=== PATIENT | female | born 1965 | race Caucasian/White ===

== ENCOUNTER 2018-03-23 09:07 | Observation (INO) | payer MEDICARE, MEDICAID ==
[2018-03-23] MEDS ORDERED: Sodium Chloride 0.9% 2.5 ML Syringe FLUSH PRN (09:16)
[2018-03-23] MEDS ORDERED: Sodium Chloride 0.9% 10 ML Syringe FLUSH PRN (09:16)
[2018-03-23] MEDS ORDERED: Aspirin 81 MG Tab.Chew PO ONE (09:26)
[2018-03-23] MEDS ORDERED: Nitroglycerin 0.4 MG Tab.SL SL PRN (09:26)
--- NOTE | 2018-03-23 09:30 | EDM.PDOC ---
ED HPI GENERAL MEDICAL PROBLEM - General Chief Complaint: Chest Pain Stated Complaint: CHEST PAIN Time Seen by Provider: 03/23/18 09:15 Source of Information: Reports: Patient History Limitations: Reports: No Limitations - History of Present Illness INITIAL COMMENTS - FREE TEXT/NARRATIVE: History of present illness: []She started having left-sided chest pain along her lower bra line this morning while she was getting dress approximately 45 minutes ago. Patient states her pain was 4/10 and is now a 1/10. She denies any other symptoms such as dizziness, sweating, shortness of breath or syncope. Patient is scheduled for a angiogram in another hospital in 4 days. Review of systems: As per history of present illness and below otherwise all systems reviewed and negative. Past medical history: As per history of present illness and as reviewed below otherwise noncontributory. Surgical history: As per history of present illness and as reviewed below otherwise noncontributory. Social history: No reported history of drug or alcohol abuse. Family history: As per history of present illness and as reviewed below otherwise noncontributory. Physical exam: General: Well developed, well nourished in NAD HEENT: Atraumatic, normocephalic, pupils reactive, negative for conjunctival pallor or scleral icterus, mucous membranes moist, throat clear, neck supple, nontender, trachea midline. Lungs: Clear to auscultation, breath sounds equal bilaterally, chest nontender. Heart: S1S2, regular, negative for clicks, rubs, or JVD. Abdomen: Soft, nondistended, nontender. Negative for masses or hepatosplenomegaly. Negative for costovertebral tenderness. Pelvis: Stable nontender. Genitourinary: Deferred. Rectal: Deferred. Extremities: Atraumatic, negative for cords or calf pain. Neurovascular unremarkable. Neuro: Awake, alert, oriented. Cranial nerves II through XII unremarkable. Cerebellum unremarkable. Motor and sensory unremarkable throughout. Exam nonfocal. Diagnostics: []CBC normal chemistry normal troponin negative EKG shows no ischemia x-rays negative Therapeutics: []Aspirin nitroglycerin given pain alleviated Impression: []Acute coronary syndrome Plan: []Admit for rule out GA Definitive disposition and diagnosis as appropriate pending reevaluation and review of above. Chest Pain Score (Numeric/FACES): 5 - Related Data Allergies Allergy/AdvReac Type Severity Reaction Status Date / Time ciprofloxacin [From Cipro] Allergy Hives Verified 03/23/18 09:41 meperidine [From Demerol] Allergy Hives Verified 03/23/18 09:41 Home Meds: Home Meds Betamethasone/Clotrimazole [Lotrisone] 1 applic TOP BID 03/23/18 [History] Calcium Citrate/Vitamin D3 [Citracal + D Maximum Caplet] 1 tab PO BID 03/23/18 [ History] Citalopram [Citalopram HBr] 20 mg PO DAILY 03/23/18 [History] Cyclobenzaprine [Flexeril] 5 - 10 mg PO TID 03/23/18 [History] Estrogens, Conjugated [Premarin Vaginal Crm] 1 applic VAG ASDIRECTED 03/23/18 [ History] Eszopiclone [Lunesta] 3 mg PO BEDTIME PRN 03/23/18 [History] Omeprazole Magnesium [Prilosec Otc] 20 mg PO DAILY 03/23/18 [History] Polyethylene Glycol 3350 [MiraLAX] 17 gm PO TID PRN 03/23/18 [History] Pramipexole [Mirapex] 0.25 mg PO BEDTIME 03/23/18 [History] SUMAtriptan Succinate [Imitrex] 100 mg PO ASDIRECTED PRN 03/23/18 [History] Temazepam [Restoril] 15 mg PO BEDTIME PRN 03/23/18 [History] Topiramate [Topamax] 50 mg PO DAILY 03/23/18 [History] buPROPion [Wellbutrin] 100 mg PO BID@06,12 03/23/18 [History] traMADol HCl [Ultram] 50 mg PO BID 03/23/18 [History] ED ROS GENERAL - Review of Systems Review Of Systems: See Below (See history of present illness) ED EXAM, GENERAL - Physical Exam Exam: See Below (See history of present illness) Course - Vital Signs Last Recorded V/S: Last Vital Signs Temp 97.3 F 03/23/18 11:39 Pulse 58 L 03/23/18 11:39 Resp 15 03/23/18 11:39 BP 130/74 03/23/18 11:39 Pulse Ox 98 03/23/18 11:44 - Orders/Labs/Meds Orders: Active Orders 24 hr Category Date Time Status Patient Status [ADT] Stat ADT 03/23/18 10:54 Active EKG Documentation Completion [RC] STAT Care 03/23/18 09:16 Active Nitroglycerin [Nitrostat] Med 03/23/18 09:26 Active 0.4 mg SL Q5M PRN Sodium Chloride 0.9% [Normal Saline] 500 ml Med 03/23/18 11:15 Active IV .BOLUS Sodium Chloride 0.9% [Saline Flush] Med 03/23/18 09:16 Active 10 ml FLUSH ASDIRECTED PRN Sodium Chloride 0.9% [Saline Flush] Med 03/23/18 09:16 Active 2.5 ml FLUSH ASDIRECTED PRN Saline Lock Insert [OM.PC] Stat Oth 03/23/18 09:16 Ordered Medication Orders Acetaminophen (Tylenol) 650 mg PO Q4H PRN PRN Reason: Pain (mild 1-3) Sodium Chloride (Normal Saline) 500 mls @ 999 mls/hr IV .BOLUS TRESA Last Admin: 03/23/18 11:08 Dose: 999 mls/hr Nitroglycerin (Nitrostat) 0.4 mg SL Q5M PRN PRN Reason: Chest Pain Last Admin: 03/23/18 10:56 Dose: 0.4 mg Ondansetron HCl (Zofran) 4 mg IVPUSH Q4H PRN PRN Reason: Nausea Sodium Chloride (Saline Flush) 10 ml FLUSH ASDIRECTED PRN PRN Reason: Keep Vein Open Sodium Chloride (Saline Flush) 2.5 ml FLUSH ASDIRECTED PRN PRN Reason: Keep Vein Open Labs: Laboratory Tests 03/23/18 03/23/18 Range/Units 09:15 09:15 WBC 4.14 (4.0-11.0) K/uL RBC 4.19 L (4.30-5.90) M/uL Hgb 13.9 (12.0-16.0) g/dL Hct 40.9 (36.0-46.0) % MCV 97.6 (80.0-98.0) fL MCH 33.2 H (27.0-32.0) pg MCHC 34.0 (31.0-37.0) g/dL RDW Std Deviation 46.8 (28.0-62.0) fl RDW Coeff of Otilio 13 (11.0-15.0) % Plt Count 186 (150-400) K/uL MPV 10.90 (7.40-12.00) fL Neut % (Auto) 46.4 L (48.0-80.0) % Lymph % (Auto) 41.5 H (16.0-40.0) % [place] % (Auto) 9.2 (0.0-15.0) % Eos % (Auto) 2.4 (0.0-7.0) % Baso % (Auto) 0.5 (0.0-1.5) % Neut # (Auto) 1.9 (1.4-5.7) K/uL Lymph # (Auto) 1.7 (0.6-2.4) K/uL [place] # (Auto) 0.4 (0.0-0.8) K/uL Eos # (Auto) 0.1 (0.0-0.7) K/uL Baso # (Auto) 0.0 (0.0-0.1) K/uL Nucleated RBC % 0.0 /100WBC Nucleated RBCs # 0 K/uL Sodium 140 (136-145) mmol/L Potassium 3.9 (3.5-5.1) mmol/L Chloride 106 (98-107) mmol/L Carbon Dioxide 27.2 (21.0-32.0) mmol/L BUN 27 H (7.0-18.0) mg/dL Creatinine 0.9 (0.6-1.0) mg/dL Est Cr Clr Drug Dosing 62.42 mL/min Estimated GFR (MDRD) > 60.0 ml/min Glucose 98 (74-106) mg/dL Calcium 8.6 (8.5-10.1) mg/dL Total Bilirubin 0.3 (0.2-1.0) mg/dL AST 30 (15-37) IU/L ALT 33 (14-63) IU/L Alkaline Phosphatase 81 (46-116) U/L Troponin I < 0.050 (0.000-0.056) ng/mL Total Protein 6.8 (6.4-8.2) g/dL Albumin 3.6 (3.4-5.0) g/dL Globulin 3.2 (2.0-3.5) g/dL Albumin/Globulin Ratio 1.1 L (1.3-2.8) Meds: Medications Generic Name Dose Route Start Last Admin Trade Name Donal PRN Reason Stop Dose Admin Acetaminophen 650 mg 03/23/18 11:44 Tylenol PO Q4H PRN Pain (mild 1-3) Sodium Chloride 500 mls @ 999 mls/hr 03/23/18 11:15 03/23/18 11:08 Normal Saline IV 999 mls/hr .BOLUS TRESA Administration Nitroglycerin 0.4 mg 03/23/18 09:26 03/23/18 10:56 Nitrostat SL 0.4 mg Q5M PRN Administration Chest Pain Ondansetron HCl 4 mg 03/23/18 11:44 Zofran IVPUSH Q4H PRN Nausea Sodium Chloride 10 ml 03/23/18 09:16 Saline Flush FLUSH ASDIRECTED PRN Keep Vein Open Sodium Chloride 2.5 ml 03/23/18 09:16 Saline Flush FLUSH ASDIRECTED PRN Keep Vein Open Discontinued Medications Generic Name Dose Route Start Last Admin Trade Name Donal PRN Reason Stop Dose Admin Aspirin 324 mg 03/23/18 09:26 03/23/18 10:55 Aspirin PO 03/23/18 09:27 324 mg ONETIME ONE Administration Departure - Departure Time of Disposition: 12:13 Disposition: Refer to Observation Condition: Good Clinical Impression: Acute coronary syndrome - My Orders Last 24 Hours: My Active Orders 03/23/18 09:16 EKG Documentation Completion [RC] STAT Sodium Chloride 0.9% [Saline Flush] 10 ml FLUSH ASDIRECTED PRN Sodium Chloride 0.9% [Saline Flush] 2.5 ml FLUSH ASDIRECTED PRN Saline Lock Insert [OM.PC] Stat 03/23/18 09:26 Nitroglycerin [Nitrostat] 0.4 mg SL Q5M PRN 03/23/18 10:54 Patient Status [ADT] Stat 03/23/18 11:15 Sodium Chloride 0.9% [Normal Saline] 500 ml IV .BOLUS - Assessment/Plan Last 24 Hours: My Active Orders 03/23/18 09:16 EKG Documentation Completion [RC] STAT Sodium Chloride 0.9% [Saline Flush] 10 ml FLUSH ASDIRECTED PRN Sodium Chloride 0.9% [Saline Flush] 2.5 ml FLUSH ASDIRECTED PRN Saline Lock Insert [OM.PC] Stat 03/23/18 09:26 Nitroglycerin [Nitrostat] 0.4 mg SL Q5M PRN 03/23/18 10:54 Patient Status [ADT] Stat 03/23/18 11:15 Sodium Chloride 0.9% [Normal Saline] 500 ml IV .BOLUS
[2018-03-23 10:18] LABS: CHLORIDE,CL 106 mmol/L (98-107); SODIUM,NA 140 mmol/L (136-145)
--- NOTE | 2018-03-23 10:49 | CR ---
EXAMINATION: Portable chest radiograph. HISTORY: Shortness of breath. FINDINGS: The trachea is midline. The cardiomediastinal silhouette is within normal limits. No pulmonary infilt rates, effusions or pneumothorax. Osseous structures appear unremarkable. Screw and plate hardware fixate the left clavicle. IMPRESSION: No acute cardiopulmonary process.
[2018-03-23] MEDS ORDERED: Sodium Chloride 0.9% 500 ML IV SCH (11:15)
[2018-03-23] MEDS ORDERED: Ondansetron 4 MG/2 ML SDV IVPUSH PRN (11:44)
[2018-03-23] MEDS ORDERED: Acetaminophen 325 MG Tab PO PRN (11:44)
--- NOTE | 2018-03-23 11:49 | PCM.HP ---
H&P History of Present Illness - General Date of Service: 03/23/18 Admit Problem/Dx: Admission Diagnosis/Problem Admission Diagnosis/Problem Chest pain Source of Information: Patient History Limitations: Reports: No Limitations - History of Present Illness Initial Comments - Free Text/Narative: This 52 year old female with pmh of migraine, depression, hx gastric bypass and currently being worked up by Cardiology in [place], [place] for CAD and chest pain. She reports she started having some chest pain yesterday at [place], it was midsternal, sharp pin like with some pressure, that lasted approximately 5 minutes. Then today she was getting dressed and the pain returned, with diaphoresis and some radiation to her R neck. She felt lightheaded and slightly dizzy. Her and her significant other checked her BP which was 116/90s, HR was lower, but they couldn't recall what it was. This pain last about 15 minutes and was nearly gone by the time she got to our ED. She was given 4 baby ASAs and 1 SL nitro in the ED. Pain was about 1/10 to almost nothing, just a slight pressure. She reports she sometimes has nothing and other times has a very small amount of pressure like feeling. She is feeling good now, pain free. No fevers, chills at home. No dypsnea or cough. No abdominal pain or heart burn. She no longer smokes, she admits to smoking marijuana approximately 4 days ago. No other recreational drug use and no alcohol use. In the ED labwork within normal limits. Troponin negative. EKG, SR with no acute ischemic changes. CXR negative. She will be admitted for chest pain rule out ACS. She reports she was here in [place] to meet with a ops analyst for her upcoming marriage. She has angiogram scheduled 03/27/2017 in [place] and was planning on returning to [place] today. Her angiogram is with Dr Sosa at [facility]. ELEAZAR Yi is her PCP in [place] as well, who she contacted prior to coming to the ED and who urged her to get to an ED. Chest Pain Score (Numeric/FACES): 5 - Related Data Allergies/Adverse Reactions: Allergies Allergy/AdvReac Type Severity Reaction Status Date / Time ciprofloxacin [From Cipro] Allergy Hives Verified 03/23/18 09:41 meperidine [From Demerol] Allergy Hives Verified 03/23/18 09:41 Home Medications: Home Meds Betamethasone/Clotrimazole [Lotrisone] 1 applic TOP BID 03/23/18 [History] Calcium Citrate/Vitamin D3 [Citracal + D Maximum Caplet] 1 tab PO BID 03/23/18 [ History] Citalopram [Citalopram HBr] 20 mg PO DAILY 03/23/18 [History] Cyclobenzaprine [Flexeril] 5 - 10 mg PO TID 03/23/18 [History] Estrogens, Conjugated [Premarin Vaginal Crm] 1 applic VAG ASDIRECTED 03/23/18 [ History] Eszopiclone [Lunesta] 3 mg PO BEDTIME PRN 03/23/18 [History] Omeprazole Magnesium [Prilosec Otc] 20 mg PO DAILY 03/23/18 [History] Polyethylene Glycol 3350 [MiraLAX] 17 gm PO TID PRN 03/23/18 [History] Pramipexole [Mirapex] 0.25 mg PO BEDTIME 03/23/18 [History] SUMAtriptan Succinate [Imitrex] 100 mg PO ASDIRECTED PRN 03/23/18 [History] Temazepam [Restoril] 15 mg PO BEDTIME PRN 03/23/18 [History] Topiramate [Topamax] 50 mg PO DAILY 03/23/18 [History] buPROPion [Wellbutrin] 100 mg PO BID@06,12 03/23/18 [History] traMADol HCl [Ultram] 50 mg PO BID 03/23/18 [History] Past Medical History Cardiovascular History: Reports: Hypertension (hx of prior to gastric bypass), Other (See Below) (being worked up for chest pain and CAD, reports she needs stents, has angiogram on 03/27/2018) Respiratory History: Reports: Sleep Apnea (CPAP). Denies: COPD, PE Gastrointestinal History: Reports: GERD Genitourinary History: Reports: None. Denies: Chronic Renal Insuffiency Musculoskeletal History: Reports: Fibromyalgia Neurological History: Reports: Migraines Psychiatric History: Reports: Depression Endocrine/Metabolic History: Reports: Obesity/BMI 30+. Denies: Diabetes, Type II - Past Surgical History GI Surgical History: Reports: Bariatric Procedure (gastric bypass 1 year ago. 2016, down 60 lbs.) Social & Family History - Tobacco Use Smoking Status *Q: Former Smoker Tobacco Use Within Last Twelve Months: Cigarettes Tobacco Use Comment: quit 5 years ago. Second Hand Smoke Exposure: No - Caffeine Use Caffeine Use: Reports: Other - Alcohol Use Alcohol Use History: No - Recreational Drug Use Recreational Drug Use: Yes Recreational Drug Type: Reports: Marijuana/Hashish (4 days ago.) - Living Situation & Occupation Living situation: Reports: with Significant Other H&P Review of Systems - Review of Systems: Review Of Systems: See Below General: Reports: No Symptoms. Denies: Fever, Chills, Malaise, Weakness HEENT: Reports: No Symptoms. Denies: Headaches, Hearing Changes, Sinus Congestion, Sore Throat, Vertigo Pulmonary: Denies: Shortness of Breath, Wheezing, Cough, Sputum Cardiovascular: Reports: Chest Pain (had midsternal chest pain/pressure 5/10 prior to arrival to ED. Currently chest pain free.). Denies: Edema, Lightheadedness Gastrointestinal: Reports: No Symptoms. Denies: Abdominal Pain, Black Stool, Bloody Stool, Nausea, Vomiting Genitourinary: Reports: No Symptoms. Denies: Dysuria, Frequency, Burning Musculoskeletal: Reports: No Symptoms. Denies: Neck Pain Skin: Reports: No Symptoms Psychiatric: Reports: No Symptoms Neurological: Reports: No Symptoms Hematologic/Lymphatic: Reports: No Symptoms Immunologic: Reports: No Symptoms Exam - Exam Exam: See Below - Vital Signs Vital Signs: Last Vital Signs Temp 97.3 F 03/23/18 11:39 Pulse 58 L 03/23/18 11:39 Resp 15 03/23/18 11:39 BP 130/74 03/23/18 11:39 Pulse Ox 98 03/23/18 11:39 Weight: 84.368 kg - Exam Quality Assessment: Other (supprt dog at bedside. along with fiance. ) General: Alert, Oriented, Cooperative HEENT: Conjunctiva Clear, Mucosa Moist & [place], Nares Patent, Posterior Pharynx Clear Neck: Supple, Trachea Midline, 2 Lungs: Clear to Auscultation, Normal Respiratory Effort Cardiovascular: Regular Rate, Regular Rhythm, Other (pain to palpation of midsternal chest region, pain is reproduced with pressure to this area. ) GI/Abdominal Exam: Normal Bowel Sounds, Soft, Non-Tender, No Organomegaly, No Distention, No Abnormal Bruit, No Mass, Pelvis Stable Back Exam: Normal Inspection, Full Range of Motion, NT Extremities: Normal Inspection, Normal Range of Motion, Non-Tender, No Pedal Edema, Normal Capillary Refill Neurological: Cranial Nerves Intact Neuro Extensive - Mental Status: Alert, Oriented x3, Normal Mood/Affect Psychiatric: Alert, Normal Affect, Normal Mood - Patient Data Lab Results Last 24 hrs: Laboratory Results - last 24 hr 03/23/18 03/23/18 Range/Units 09:15 09:15 WBC 4.14 (4.0-11.0) K/uL RBC 4.19 L (4.30-5.90) M/uL Hgb 13.9 (12.0-16.0) g/dL Hct 40.9 (36.0-46.0) % MCV 97.6 (80.0-98.0) fL MCH 33.2 H (27.0-32.0) pg MCHC 34.0 (31.0-37.0) g/dL RDW Std Deviation 46.8 (28.0-62.0) fl RDW Coeff of Otilio 13 (11.0-15.0) % Plt Count 186 (150-400) K/uL MPV 10.90 (7.40-12.00) fL Neut % (Auto) 46.4 L (48.0-80.0) % Lymph % (Auto) 41.5 H (16.0-40.0) % [place] % (Auto) 9.2 (0.0-15.0) % Eos % (Auto) 2.4 (0.0-7.0) % Baso % (Auto) 0.5 (0.0-1.5) % Neut # (Auto) 1.9 (1.4-5.7) K/uL Lymph # (Auto) 1.7 (0.6-2.4) K/uL [place] # (Auto) 0.4 (0.0-0.8) K/uL Eos # (Auto) 0.1 (0.0-0.7) K/uL Baso # (Auto) 0.0 (0.0-0.1) K/uL Nucleated RBC % 0.0 /100WBC Nucleated RBCs # 0 K/uL Sodium 140 (136-145) mmol/L Potassium 3.9 (3.5-5.1) mmol/L Chloride 106 (98-107) mmol/L Carbon Dioxide 27.2 (21.0-32.0) mmol/L BUN 27 H (7.0-18.0) mg/dL Creatinine 0.9 (0.6-1.0) mg/dL Est Cr Clr Drug Dosing 62.42 mL/min Estimated GFR (MDRD) > 60.0 ml/min Glucose 98 (74-106) mg/dL Calcium 8.6 (8.5-10.1) mg/dL Total Bilirubin 0.3 (0.2-1.0) mg/dL AST 30 (15-37) IU/L ALT 33 (14-63) IU/L Alkaline Phosphatase 81 (46-116) U/L Troponin I < 0.050 (0.000-0.056) ng/mL Total Protein 6.8 (6.4-8.2) g/dL Albumin 3.6 (3.4-5.0) g/dL Globulin 3.2 (2.0-3.5) g/dL Albumin/Globulin Ratio 1.1 L (1.3-2.8) Result Diagrams: 03/24/18 04:35 03/23/18 09:15 EKG INTERPRETATION Rhythm: NSR P-Wave: Present QRS: Normal ST-T: Normal QT: Normal - Problem List (1) Chest pain SNOMED Code(s): 07698088 ICD Code: R07.9 - CHEST PAIN, UNSPECIFIED Status: Acute Current Visit: Yes (2) Hx of gastric bypass SNOMED Code(s): 468194496 ICD Code: Z98.84 - BARIATRIC SURGERY STATUS Status: Chronic Current Visit : Yes (3) GERD (gastroesophageal reflux disease) SNOMED Code(s): 987105322 ICD Code: K21.9 - GASTRO-ESOPHAGEAL REFLUX DISEASE WITHOUT ESOPHAGITIS Status: Chronic Current Visit: Yes (4) Depression SNOMED Code(s): 01552123 ICD Code: F32.9 - MAJOR DEPRESSIVE DISORDER, SINGLE EPISODE, UNSPECIFIED Status: Chronic Current Visit: Yes (5) Fibromyalgia SNOMED Code(s): 214267905 ICD Code: M79.7 - FIBROMYALGIA Status: Chronic Current Visit: Yes (6) Hx of migraines SNOMED Code(s): 425942910 ICD Code: Z86.69 - PERSONAL HISTORY OF DIS OF THE NERVOUS SYS AND SENSE ORGANS Status: Chronic Current Visit: Yes Problem List Initiated/Reviewed/Updated: Yes Orders Last 24hrs: Active Orders 24 hr Category Date Time Status Patient Status [ADT] Stat ADT 03/23/18 10:54 Active EKG Documentation Completion [RC] STAT Care 03/23/18 09:16 Active Intake and Output [RC] QSHIFT Care 03/23/18 11:44 Ordered Oxygen Therapy [RC] PRN Care 03/23/18 11:44 Ordered Telemetry Monitoring [Cardiac Monitoring] [RC] . Care 03/23/18 11:46 Ordered DIRECTED Up ad Deirdre [RC] ASDIRECTED Care 03/23/18 11:44 Ordered VTE/DVT Education [RC] PER UNIT ROUTINE Care 03/23/18 11:44 Ordered Vital Signs [RC] Q4H Care 03/23/18 11:44 Ordered Heart Healthy Diet [DIET] Diet 03/23/18 Lunch Ordered TROPONIN I [CHEM] Q6H Lab 03/23/18 15:15 Ordered TROPONIN I [CHEM] Q6H Lab 03/23/18 21:15 Ordered Acetaminophen [Tylenol] Med 03/23/18 11:44 Ordered 650 mg PO Q4H PRN Nitroglycerin [Nitrostat] Med 03/23/18 09:26 Active 0.4 mg SL Q5M PRN Ondansetron [Zofran] Med 03/23/18 11:44 Ordered 4 mg IVPUSH Q4H PRN Sodium Chloride 0.9% [Normal Saline] 500 ml Med 03/23/18 11:15 Active IV .BOLUS Sodium Chloride 0.9% [Saline Flush] Med 03/23/18 09:16 Active 10 ml FLUSH ASDIRECTED PRN Sodium Chloride 0.9% [Saline Flush] Med 03/23/18 09:16 Active 2.5 ml FLUSH ASDIRECTED PRN Saline Lock Insert [OM.PC] Stat Oth 03/23/18 09:16 Ordered Sequential Compression Device [OM.PC] Per Unit Routine Oth 03/23/18 11:44 Ordered Resuscitation Status Routine Resus Stat 03/23/18 11:44 Ordered Medication Orders Acetaminophen (Tylenol) 650 mg PO Q4H PRN PRN Reason: Pain (mild 1-3) Sodium Chloride (Normal Saline) 500 mls @ 999 mls/hr IV .BOLUS TRESA Last Admin: 03/23/18 11:08 Dose: 999 mls/hr Nitroglycerin (Nitrostat) 0.4 mg SL Q5M PRN PRN Reason: Chest Pain Last Admin: 03/23/18 10:56 Dose: 0.4 mg Ondansetron HCl (Zofran) 4 mg IVPUSH Q4H PRN PRN Reason: Nausea Sodium Chloride (Saline Flush) 10 ml FLUSH ASDIRECTED PRN PRN Reason: Keep Vein Open Sodium Chloride (Saline Flush) 2.5 ml FLUSH ASDIRECTED PRN PRN Reason: Keep Vein Open Assessment/Plan Comment:: This 52 year ago female admitted with chest pain, with CAD and being worked up in [place] who angiogram in 4 days. 1. Chest pain: Currently chest pain free. Trend troponins and monitor on telemetry. If chest pain returns may need to consider transfer due to known CAD and potential of needing stents. Will obtain records from Dr Sosa and PCP from [facility] in [place]. 2. Migraines: Continue home meds 3. Depression: Stable continue home medications. VTE prophylaxis: SCDs Dispo: 1-2 days
[2018-03-23] MEDS ORDERED: Temazepam 15 MG Cap PO PRN (16:40)
[2018-03-23] MEDS ORDERED: Polyethylene Glycol 3350 Powder 17 GM Packet PO PRN (16:40)
[2018-03-23] MEDS ORDERED: Cyclobenzaprine 10 MG Tab PO PRN (16:40)
[2018-03-23] MEDS ORDERED: Pramipexole 0.25 MG Tab PO SCH (21:00)
[2018-03-23] MEDS: Calcium Carbonate/Vitamin D3 1500 MG-400 Units Tab PO SCH (21:28)
[2018-03-23] MEDS: traMADol 50 MG Tab PO SCH (21:28)
[2018-03-24] MEDS ORDERED: buPROPion 100 MG Tab PO SCH (06:00)
[2018-03-24 06:39] LABS: CHLORIDE,CL 106 mmol/L (98-107); SODIUM,NA 141 mmol/L (136-145)
[2018-03-24] MEDS ORDERED: Omeprazole 20 MG Cap.CR PO SCH (07:30)
[2018-03-24] MEDS: traMADol 50 MG Tab PO SCH (08:23)
[2018-03-24] MEDS: Calcium Carbonate/Vitamin D3 1500 MG-400 Units Tab PO SCH (08:23)
[2018-03-24] MEDS ORDERED: Citalopram 20 MG Tab PO SCH (09:00)
[2018-03-24] MEDS ORDERED: Topiramate 50 MG Tab PO SCH (09:00)
--- NOTE | 2018-03-24 10:13 | PCM.DCSUM1 ---
Discharge Summary - Hospital Course Brief History: This 52 year old female with pmh of migraine, depression, hx gastric bypass and currently being worked up by Cardiology in [place], [place] for CAD and chest pain. She reports she started having some chest pain yesterday at [employer], it was midsternal, sharp pin like with some pressure, that lasted approximately 5 minutes. Then today she was getting dressed and the pain returned, with diaphoresis and some radiation to her R neck. She felt lightheaded and slightly dizzy. Her and her significant other checked her BP which was 116/90s, HR was lower, but they couldn't recall what it was. This pain last about 15 minutes and was nearly gone by the time she got to our ED. She was given 4 baby ASAs and 1 SL nitro in the ED. Pain was about 1/10 to almost nothing, just a slight pressure. She reports she sometimes has nothing and other times has a very small amount of pressure like feeling. She is feeling good now, pain free. No fevers, chills at home. No dypsnea or cough. No abdominal pain or heart burn. She no longer smokes, she admits to smoking marijuana approximately 4 days ago. No other recreational drug use and no alcohol use. In the ED labwork within normal limits. Troponin negative. EKG, SR with no acute ischemic changes. CXR negative. She will be admitted for chest pain rule out ACS. She reports she was here in [place] to meet with a egg trayer for her upcoming marriage. She has angiogram scheduled 03/27/2017 in [place] and was planning on returning to [place] today. Her angiogram is with Dr Sosa at [facility]. ELEAZAR Yi is her PCP in [place] as well, who she contacted prior to coming to the ED and who urged her to get to an ED. - Discharge Data Discharge Date: 03/24/18 Discharge Disposition: Home, Self-Care 01 Condition: Good - Discharge Diagnosis/Problem(s) (1) Chest pain SNOMED Code(s): 01626942 ICD Code: R07.9 - CHEST PAIN, UNSPECIFIED Status: Acute Current Visit: Yes (2) Hx of gastric bypass SNOMED Code(s): 946356288 ICD Code: Z98.84 - BARIATRIC SURGERY STATUS Status: Chronic Current Visit : Yes (3) GERD (gastroesophageal reflux disease) SNOMED Code(s): 515138806 ICD Code: K21.9 - GASTRO-ESOPHAGEAL REFLUX DISEASE WITHOUT ESOPHAGITIS Status: Chronic Current Visit: Yes (4) Depression SNOMED Code(s): 19902131 ICD Code: F32.9 - MAJOR DEPRESSIVE DISORDER, SINGLE EPISODE, UNSPECIFIED Status: Chronic Current Visit: Yes (5) Fibromyalgia SNOMED Code(s): 024784608 ICD Code: M79.7 - FIBROMYALGIA Status: Chronic Current Visit: Yes (6) Hx of migraines SNOMED Code(s): 766491758 ICD Code: Z86.69 - PERSONAL HISTORY OF DIS OF THE NERVOUS SYS AND SENSE ORGANS Status: Chronic Current Visit: Yes - Patient Instructions Diet: Heart Healthy Diet Activity: No Strenuous Activities (until angiogram) Driving: Do Not Drive Showering/Bathing: May Shower Notify Provider of: Fever, Increased Pain, Swelling and Redness, Drainage, Nausea and/or Vomiting Other/Special Instructions: If chest pain reoccurs you need to go to the closest ED possible and seek medical attention. No driving and no strenuous activities until cleared after angiogram. - Discharge Plan Prescriptions/Med Rec: Nitroglycerin [Nitrostat] 0.4 mg SL Q5M PRN #1 bottle PRN Reason: Chest Pain Home Medications: Home Meds Betamethasone/Clotrimazole [Lotrisone] 1 applic TOP BID 03/23/18 [History] Calcium Citrate/Vitamin D3 [Citracal + D Maximum Caplet] 1 tab PO BID 03/23/18 [ History] Citalopram [Citalopram HBr] 20 mg PO DAILY 03/23/18 [History] Cyclobenzaprine [Flexeril] 5 - 10 mg PO TID 03/23/18 [History] Eszopiclone [Lunesta] 3 mg PO BEDTIME PRN 03/23/18 [History] Omeprazole Magnesium [Prilosec Otc] 20 mg PO DAILY 03/23/18 [History] Polyethylene Glycol 3350 [MiraLAX] 17 gm PO TID PRN 03/23/18 [History] Pramipexole [Mirapex] 0.25 mg PO BEDTIME 03/23/18 [History] Temazepam [Restoril] 15 mg PO BEDTIME PRN 03/23/18 [History] Topiramate [Topamax] 50 mg PO DAILY 03/23/18 [History] buPROPion [Wellbutrin] 100 mg PO BID@06,12 03/23/18 [History] traMADol HCl [Ultram] 50 mg PO BID 03/23/18 [History] Nitroglycerin [Nitrostat] 0.4 mg SL Q5M PRN #1 bottle 03/24/18 [Rx] Patient Handouts: Chest Wall Pain, [id number], Acute Coronary Syndrome, Nitroglycerin sublingual tablets Referrals: Ezra Sosa [Ordering Only Provider] - (Has angiogram on 03/27/2018) - Discharge Summary/Plan Comment DC Time >30 min.: No Discharge Summary/Plan Comment: Discharge Diagnoses: Chest pain-resolved and chest pain free CAD with abnormal stress test with anterior and anteroseptal ischemia seen on PET stress test Hx gastric bypass Depression Migraine Isabell was admitted for chest pain, which was located mid sternal, pinlike, that last for 10-15 minutes and was reproducible upon palpation to midsternal anterior chest wall. She was pain free in the ED, given ASA and Nitro x 1. She had some heaviness at beginning of admission, but this then subsided. Troponins were monitored x 4, which were all negative. EKG SR with no acute signs of ishcemia. 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 I asked for recommendedations on discharge. He felt since she is pain free it would be ok for her to travel back to [place] and plan on angiogram as scheduled. But in the meantime if she has any further chest pain she needs to stop at the nearest ED. She will also be given Nitro SL, she was instructed how to take this and if needed she needs to seek medical treatment immediately. She and her fiance agree with plan and feel comfortable traveling back to [place]. She was told, no strenuous activities and no driving. Fiance encouraged to do all lifting and driving and again if chest pain returns she is to get to the nearest ED for evaluation and transfer to [place]. She was encouraged to stop Imitrex and Estrogen vaginal cream and to ask Cardiology regarding the continuation of these medications due to cardiac risk. - General Info Date of Service: 03/24/18 Admission Dx/Problem (Free Text: Admission Diagnosis/Problem Admission Diagnosis/Problem Chest pain Subjective Update: Denies chest pain or SOB this morning, very eager for discharge home. Had migraine overnight, but feels better today. - Review of Systems General: Reports: No Symptoms. Denies: Fever, Weakness, Fatigue, Malaise HEENT: Reports: No Symptoms. Denies: Headaches, Sore Throat, Visual Changes Pulmonary: Reports: No Symptoms. Denies: Shortness of Breath, Cough, Sputum Cardiovascular: Reports: No Symptoms. Denies: Chest Pain, Palpitations, Edema, Lightheadedness Gastrointestinal: Reports: No Symptoms. Denies: Abdominal Pain, Nausea, Vomiting Genitourinary: Reports: No Symptoms. Denies: Dysuria, Frequency, Burning Musculoskeletal: Reports: No Symptoms Skin: Reports: No Symptoms Neurological: Reports: No Symptoms Psychiatric: Reports: No Symptoms - Patient Data Vitals - Most Recent: Last Vital Signs Temp 97.5 F 03/24/18 08:29 Pulse 57 L 03/24/18 08:29 Resp 15 03/24/18 08:29 BP 129/79 03/24/18 08:29 Pulse Ox 98 03/24/18 08:29 Weight - Most Recent: 84.368 kg I&O - Last 24 hours: Intake & Output 03/23/18 03/24/18 03/24/18 22:59 06:59 14:59 Intake Total 450 200 Output Total 950 Balance 450 -750 Lab Results - Last 24 hrs: Laboratory Results - last 24 hr 03/23/18 03/23/18 03/23/18 Range/Units 09:15 15:15 21:19 WBC (4.0-11.0) K/uL RBC (4.30-5.90) M/uL Hgb (12.0-16.0) g/dL Hct (36.0-46.0) % MCV (80.0-98.0) fL MCH (27.0-32.0) pg MCHC (31.0-37.0) g/dL RDW Std Deviation (28.0-62.0) fl RDW Coeff of Otilio (11.0-15.0) % Plt Count (150-400) K/uL MPV (7.40-12.00) fL Neut % (Auto) (48.0-80.0) % Lymph % (Auto) (16.0-40.0) % Ponce % (Auto) (0.0-15.0) % Eos % (Auto) (0.0-7.0) % Baso % (Auto) (0.0-1.5) % Neut # (Auto) (1.4-5.7) K/uL Lymph # (Auto) (0.6-2.4) K/uL Ponce # (Auto) (0.0-0.8) K/uL Eos # (Auto) (0.0-0.7) K/uL Baso # (Auto) (0.0-0.1) K/uL Nucleated RBC % /100WBC Nucleated RBCs # K/uL Sodium 140 (136-145) mmol/L Potassium 3.9 (3.5-5.1) mmol/L Chloride 106 (98-107) mmol/L Carbon Dioxide 27.2 (21.0-32.0) mmol/L BUN 27 H (7.0-18.0) mg/dL Creatinine 0.9 (0.6-1.0) mg/dL Est Cr Clr Drug Dosing 62.42 mL/min Estimated GFR (MDRD) > 60.0 ml/min Glucose 98 (74-106) mg/dL Calcium 8.6 (8.5-10.1) mg/dL Total Bilirubin 0.3 (0.2-1.0) mg/dL AST 30 (15-37) IU/L ALT 33 (14-63) IU/L Alkaline Phosphatase 81 (46-116) U/L Troponin I < 0.050 < 0.050 < 0.050 (0.000-0.056) ng/mL Total Protein 6.8 (6.4-8.2) g/dL Albumin 3.6 (3.4-5.0) g/dL Globulin 3.2 (2.0-3.5) g/dL Albumin/Globulin Ratio 1.1 L (1.3-2.8) 03/24/18 03/24/18 Range/Units 04:35 04:35 WBC 4.74 (4.0-11.0) K/uL RBC 4.30 (4.30-5.90) M/uL Hgb 14.3 (12.0-16.0) g/dL Hct 41.5 (36.0-46.0) % MCV 96.5 (80.0-98.0) fL MCH 33.3 H (27.0-32.0) pg MCHC 34.5 (31.0-37.0) g/dL RDW Std Deviation 45.9 (28.0-62.0) fl RDW Coeff of Otilio 13 (11.0-15.0) % Plt Count 177 (150-400) K/uL MPV 11.30 (7.40-12.00) fL Neut % (Auto) 56.4 (48.0-80.0) % Lymph % (Auto) 32.7 (16.0-40.0) % Ponce % (Auto) 8.6 (0.0-15.0) % Eos % (Auto) 1.9 (0.0-7.0) % Baso % (Auto) 0.4 (0.0-1.5) % Neut # (Auto) 2.7 (1.4-5.7) K/uL Lymph # (Auto) 1.6 (0.6-2.4) K/uL Ponce # (Auto) 0.4 (0.0-0.8) K/uL Eos # (Auto) 0.1 (0.0-0.7) K/uL Baso # (Auto) 0.0 (0.0-0.1) K/uL Nucleated RBC % 0.0 /100WBC Nucleated RBCs # 0 K/uL Sodium 141 (136-145) mmol/L Potassium 4.6 (3.5-5.1) mmol/L Chloride 106 (98-107) mmol/L Carbon Dioxide 31.5 (21.0-32.0) mmol/L BUN 20 H (7.0-18.0) mg/dL Creatinine 0.9 (0.6-1.0) mg/dL Est Cr Clr Drug Dosing 59.80 mL/min Estimated GFR (MDRD) > 60.0 ml/min Glucose 98 (74-106) mg/dL Calcium 9.1 (8.5-10.1) mg/dL Total Bilirubin (0.2-1.0) mg/dL AST (15-37) IU/L ALT (14-63) IU/L Alkaline Phosphatase (46-116) U/L Troponin I < 0.050 (0.000-0.056) ng/mL Total Protein (6.4-8.2) g/dL Albumin (3.4-5.0) g/dL Globulin (2.0-3.5) g/dL Albumin/Globulin Ratio (1.3-2.8) Med Orders - Current: Current Medications Acetaminophen (Tylenol) 650 mg PO Q4H PRN PRN Reason: Pain (mild 1-3) Bupropion HCl (Wellbutrin) 100 mg PO BID@06,12 [facility] Last Admin: 03/24/18 07:05 Dose: 100 mg Calcium Carbonate (Caltrate 600+D 1500 Mg-400 Units) 1 tab PO BID [facility] Last Admin: 03/24/18 08:23 Dose: 1 tab Citalopram Hydrobromide (Celexa) 20 mg PO DAILY [facility] Last Admin: 03/24/18 08:24 Dose: 20 mg Cyclobenzaprine HCl (Flexeril) 5 - 10 mg PO TID PRN PRN Reason: muscle spasms Sodium Chloride (Normal Saline) 500 mls @ 999 mls/hr IV .BOLUS [facility] Last Admin: 03/23/18 11:08 Dose: 999 mls/hr Nitroglycerin (Nitrostat) 0.4 mg SL Q5M PRN PRN Reason: Chest Pain Last Admin: 03/23/18 10:56 Dose: 0.4 mg Omeprazole (Omeprazole) 20 mg PO ACBREAKFAST [facility] Last Admin: 03/24/18 07:05 Dose: 20 mg Ondansetron HCl (Zofran) 4 mg IVPUSH Q4H PRN PRN Reason: Nausea Polyethylene Glycol (Miralax) 17 gm PO TID PRN PRN Reason: Constipation Pramipexole Dihydrochloride (Mirapex) 0.25 mg PO BEDTIME [facility] Last Admin: 03/23/18 21:28 Dose: 0.25 mg Sodium Chloride (Saline Flush) 10 ml FLUSH ASDIRECTED PRN PRN Reason: Keep Vein Open Sodium Chloride (Saline Flush) 2.5 ml FLUSH ASDIRECTED PRN PRN Reason: Keep Vein Open Temazepam (Restoril) 15 mg PO BEDTIME PRN PRN Reason: Sleep Topiramate (Topamax) 50 mg PO DAILY [facility] Last Admin: 03/24/18 08:24 Dose: 50 mg Tramadol HCl (Ultram) 50 mg PO BID [facility] Last Admin: 03/24/18 08:23 Dose: 50 mg Zaleplon (Sonata) 5 mg PO BEDTIME PRN PRN Reason: Insomnia Discontinued Medications Aspirin (Aspirin) 324 mg PO ONETIME ONE Stop: 03/23/18 09:27 Last Admin: 03/23/18 10:55 Dose: 324 mg Eszopiclone (Lunesta) 3 mg PO BEDTIME PRN PRN Reason: Insomnia - Exam General: Reports: Alert, Oriented, Cooperative, No Acute Distress Neck: Reports: Supple Lungs: Reports: Clear to Auscultation, Normal Respiratory Effort Cardiovascular: Reports: Regular Rate, Regular Rhythm, Other (no chest pain and no pain to palpation of chest wall) GI/Abdominal Exam: Normal Bowel Sounds, Soft, Non-Tender, No Organomegaly, No Distention, No Abnormal Bruit, No Mass, Pelvis Stable Extremities: Normal Inspection, Normal Range of Motion, Non-Tender, No Pedal Edema, Normal Capillary Refill Neurological: Reports: No New Focal Deficit Psy/Mental Status: Reports: Alert, Normal Affect, Normal Mood
== END 2018-03-24 09:45 | disposition home or self-care (01) ==
LOC: MW.ED 09:07 → MW.MS 11:25
PROVIDERS: ADMIT Internal Medicine; ATTEND Internal Medicine
DX: R07.2 Precordial pain (principal); G43.909 Migraine, unspecified, not intractable, without status migrainosus; F32.9 Major depressive disorder, single episode, unspecified; I25.10 Atherosclerotic heart disease of native coronary artery without angina pectoris; K21.9 Gastro-esophageal reflux disease without esophagitis; M79.7 Fibromyalgia; I10 Essential (primary) hypertension; G47.30 Sleep apnea, unspecified; E66.9 Obesity, unspecified; Z68.30 Body mass index [BMI] 30.0-30.9, adult; Z98.84 Bariatric surgery status; Z86.69 Personal history of other diseases of the nervous system and sense organs; Z79.899 Other long term (current) drug therapy; Z88.1 Allergy status to other antibiotic agents; Z88.8 Allergy status to other drugs, medicaments and biological substances; Z99.89 Dependence on other enabling machines and devices; Z87.891 Personal history of nicotine dependence
CPT/HCPCS: 36415; 71045; 71045-26; 80048; 80053; 84484; 85025; 93005; 99285; 99285-25; A9270-GY; G0378; J7040